=== PATIENT | male | born 1995 | race Caucasian/White ===

== ENCOUNTER 2020-04-08 13:52 | Emergency (ER) | payer BC ==
--- NOTE | 2020-04-08 13:58 | PDOC ---
Rapid Medical Evaluation Time Seen by Provider: 04/08/20 13:57 Medical Evaluation: 04/08/20 13:57 I have performed a brief in-person evaluation of this patient. CC: left 4th finger crush injury PE: swelling and discoloration present over distal phalanx on left 4th finger Orders: xray, tylenol Patient will proceed to ED for further evaluation. Discharge Disposition - Diagnosis Finger injury - Referrals - Patient Instructions - Post Discharge Activity
[2020-04-08 14:01] VITALS: BP 125/74; PULSE 89; TEMP 98.6; BMI 36.1
[2020-04-08] MEDS ORDERED: IBUPROFEN 400 MG TABLET (FP) PO ONE (14:27)
[2020-04-08] MEDS ORDERED: DIPHTH,PERTUSS(ACELL),TET 0.5 ML DISP.SYRIN IM ONE ×2 (14:30→15:26)
--- NOTE | 2020-04-08 14:35 | PDOC ---
History of Present Illness - General Chief Complaint: Injury Stated Complaint: RING FINGER INJURY Time Seen by Provider: 04/08/20 13:57 History Source: Patient Exam Limitations: Clinical Condition - History of Present Illness Initial Comments: 04/08/20 14:36 Patient with no significant past medical history present with pain and swelling to distal to left ring finger status post finger got trapped between 2 wooden boards and crushing left ring finger over an hour ago. Patient reported increased pain to tip of left ring finger. Denies numbness or tingling sensation. Denies weakness in finger. Patient did not take anything for symptoms Occurred: reports: just prior to arrival Past History - Medical History Allergies/Adverse Reactions: Allergies Allergy/AdvReac Type Severity Reaction Status Date / Time No Known Allergies Allergy Verified 04/08/20 14:35 Home Medications: Ambulatory Orders Ibuprofen 800 mg PO Q8H PRN #16 tablet 04/08/20 COPD: No - Psycho-Social/Smoking History Smoking History: Never smoked Have you smoked in the past 12 months: No Information on smoking cessation initiated: No - Substance Abuse Hx (Audit-C & DAST Scrn) How often the patient has a drink containing alcohol: Never Score: In Men: 4 or > Positive; In Women: 3 or > Positive: 0 Screen Result (Pos requires Nsg. Audit-10AR): Negative In the last yr the pt used illegal drug/Rx for NonMed reason: No Score: Yes response is considered Positive: 0 Screen Result (Positive result requires Nsg. DAST-10): Negative Review of Systems - Review of Systems Able to Perform ROS?: Yes Is the patient limited [place]ian proficient: No Constitutional: No: Chills, Fever, Malaise HEENTM: No: Symptoms Reported, See HPI, Eye Pain, Blurred Vision, Tearing, Recent change in vision, Double Vision, Cataracts, Ear Pain, Ocular Prothesis, Ear Discharge, Nose Pain, Nose Congestion, Tinnitus, Nose Bleeding, Hearing Loss, Throat Pain, Throat Swelling, Mouth Pain, Dental Problems, Difficulty Swallowing, Mouth Swelling, Other Respiratory: No: Symptoms reported, See HPI, Cough, Orthopnea, Shortness of Breath, SOB with Exertion, SOB at Rest, Stridor, Wheezing, Productive cough, Hemoptysis, Other Cardiac (ROS): No: Symptoms Reported Musculoskeletal: Yes: Symptoms Reported, See HPI, Joint Swelling (Left ring finger), Muscle Pain (Pain to left distal ring finger) Integumentary: Yes: Symptoms Reported, See HPI, Change in Color (Tip of left ring finger). No: Erythema Neurological: No: Numbness, Paresthesia, Tingling, Dizziness All Other Systems: Reviewed and Negative *Physical Exam - Vital Signs Last Vital Signs Temp Pulse Resp BP Pulse Ox 98.6 F 89 22 H 125/74 100 04/08/20 13:58 04/08/20 13:58 04/08/20 13:58 04/08/20 13:58 04/08/20 13:58 - Physical Exam 04/08/20 14:39 GENERAL: Well developed, well nourished. Awake and alert in mild acute distress. PULMONARY: No evidence of respiratory distress. MUSCULOSKELETAL : Mild localized swelling to distal phalange of left ring finger with moderate tenderness to distal phalange of left ring finger. Full range of motion of fingers. No visible deformity. Normal strength of fingers SKIN: Warm and dry. Normal capillary refill. Mild swelling to distal phalange of left ring finger without damage to fingernail NEUROLOGICAL: Alert, awake, appropriate. No motor deficits in the lower extremities. Gait is normal without ataxia. PSYCHIATRIC: Cooperative. Good eye contact. Appropriate mood and affect. General Appearance: Yes: Nourished, Appropriately Dressed, Apparent Distress, Mild Distress Medical Decision Making - Medical Decision Making 04/08/20 14:37 Patient with no significant past medical history present with pain and swelling to distal to left ring finger status post finger got trapped between 2 wooden boards and crushing left ring finger over an hour ago. Patient reported increased pain to tip of left ring finger. Denies numbness or tingling sensation. Denies weakness in finger. Patient did not take anything for symptoms Exam significant for moderate tenderness to distal phalange of left ring finger with mild swelling. No open wounds. Full range of motion of fingers. No tenderness to rest of fingers. No nailbed damage. X-ray of finger shows no acute fracture or dislocation. Patient symptoms likely finger contusion. Motrin 800 mg p.o. ordered for pain. Ice pack applied to finger. Patient stable for discharge with advised to do cold compress today and switch to hot compress tomorrow as needed for swelling and take Motrin as needed for pain with orthopedic hand specialist follow-up Discharge - Discharge Information Problems reviewed: Yes Clinical Impression/Diagnosis: Finger injury Qualifiers: Encounter type: initial encounter Laterality: left Qualified Code(s): S69.92XA - Unspecified injury of left wrist, hand and finger(s), initial encounter Condition: Stable Disposition: HOME - Admission No - Additional Discharge Information Prescriptions: Ibuprofen 800 mg PO Q8H PRN #16 tablet PRN Reason: finger pain - Follow up/Referral Referrals: Jaylon Garber MD [Staff Physician] - - Patient Discharge Instructions Patient Printed Discharge Instructions: DI for Finger Sprain Additional Instructions: X-ray of your finger shows no acute fracture or dislocation. Your pain is likely from finger contusion. Apply cold compress today switch to hot compress tomorrow as needed for pain and swelling. Soak finger in Epson salt water to help with the swelling and take prescribed Motrin as needed for pain and swe lling. Follow-up referred to orthopedic hand specialist if symptoms persist for more than 4 days - Post Discharge Activity
== END 2020-04-08 14:44 | disposition home or self-care (01) ==
LOC: JERFT 13:52
PROC: 3E0234Z Introduction of Serum, Toxoid and Vaccine into Muscle, Percutaneous Approach (ICD-10-PCS; principal; 2020-04-08)
DX: S69.92XA Unspecified injury of left wrist, hand and finger(s), initial encounter (principal); W23.0XXA Caught, crushed, jammed, or pinched between moving objects, initial encounter
CPT/HCPCS: 73140-TC-LT-FY; 90715; 99283-25

== ENCOUNTER 2024-06-19 16:45 | Emergency (ER) | payer BC, OTHER ==
[2024-06-19 16:52] VITALS: BP 151/88; PULSE 64; RESP 18; TEMP 98.7; BMI 36.9
[2024-06-19] MEDS ORDERED: FAMOTIDINE 20 MG TABLET ONE (18:05)
[2024-06-19] MEDS ORDERED: diphenhydrAMINE HCL 25 MG CAPSULE (FP) PO ONE (18:05)
[2024-06-19] MEDS ORDERED: predniSONE 20 MG TABLET (UD) ONE (18:05)
[2024-06-19] MEDS: FAMOTIDINE 20 MG TABLET PO ONE (18:10)
[2024-06-19] MEDS: diphenhydrAMINE HCL 25 MG CAPSULE (FP) PO ONE (18:10)
[2024-06-19] MEDS: predniSONE 20 MG TABLET (UD) PO ONE (18:10)
[2024-06-19] MEDS: diphenhydrAMINE HCL 12.5 MG/5 ML UNIT-DOSE CUPS PO ONE (18:42)
== END 2024-06-19 18:54 | disposition home or self-care (01) ==
LOC: JER 16:45 → JERFT 16:45
DX: R21 Rash and other nonspecific skin eruption (principal); L30.9 Dermatitis, unspecified
CPT/HCPCS: 99283-25